=== PATIENT | male | born 1950 | race Caucasian/White ===

== ENCOUNTER → 2018-01-22 | Outpatient (CLI) | payer MEDICARE, OTHER ==
[2013-12-25 09:12] VITALS: BP 142/90
--- NOTE | 2018-01-22 11:31 | KCIC ---
MRI of the cervical spine without contrast 01/22/2018 CLINICAL HISTORY: Neck pain for last 3 weeks with new left arm numbness. TECHNIQUE: Unenhanced T1-weighted, T2-weighted and inversion recovery sagittal and gradient echo and T2-weighted axial images of the cervical spine were obtained. FINDINGS: Minimal lateral curvature of the cervical spine is seen convex to the right. There is straightening of the normal cervical lordosis. Degenerative signal changes are seen involving all of the disks of the cervical spine. Degenerative signal changes are seen within the marrow surrounding these discs. Loss of height of the C3-4, C5-6 and C6-7 discs is noted. No area of abnormal signal intensity is seen involving the cervical spinal cord. At the C2-3 disc space there is a minimal generalized disc bulge. Superimposed on this disc bulge is a focal central disc protrusion. This measures 2 mm in AP diameter. Degenerative changes are seen involving the uncovertebral and facet joints bilaterally. These findings do not result in significant central spinal canal or neural foraminal stenosis. At the C3-4 disc space there is a mild generalized disc bulge. Superimposed on this disc bulge is a central/right paracentral disc osteophyte complex. This measures 4 mm in AP diameter. Degenerative changes are seen involving the uncovertebral and facet joints, right greater than left. These findings efface the anterior CSF resulting in mild right-sided central spinal canal stenosis without evidence of cord impingement. Mild to moderate right greater than left neural foraminal stenosis is seen. At the C4-5 disc space there is a mild generalized disc bulge. Superimposed on this disc bulge is a focal central disc protrusion. This measures 3 mm in AP diameter. Degenerative changes are seen involving the uncovertebral and facet joints, left greater than right. These findings when combined do not result in significant central spinal canal stenosis. Mild left neural foraminal stenosis is seen. The right neural foramen is patent. At the C5-6 disc space there is a mild generalized disc bulge. Superimposed on this disc bulge is a left paracentral disc osteophyte complex. This measures 5 mm in AP diameter. Degenerative changes are seen involving the uncovertebral and facet joints, left greater than right. These findings when combined result in mild to moderate left-sided central spinal canal stenosis. Moderate to severe left neural foraminal stenosis is seen. The right neural foramen is patent. At the C6-7 disc space there is a mild to moderate generalized disc bulge. Degenerative changes are seen involving the uncovertebral and facet joints, left greater than right. These findings when combined do not result in significant central spinal canal stenosis. Mild to moderate bilateral neural foraminal stenosis is seen. At the C7-T1 disc space there is a mild generalized disc bulge. Degenerative changes are seen involving the uncovertebral and facet joints bilaterally. These findings do not result in significant central spinal canal or neural foraminal stenosis. IMPRESSION: Degenerative changes are seen throughout the cervical spine. These findings results in mild right-sided central spinal canal stenosis at C3-4 and mild to moderate left-sided central spinal canal stenosis at C5-6 without definite evidence of cord impingement. Multilevel neural foraminal stenosis of varying severity is seen as outlined above. Electronically signed by: Eleazar Sanchez MD (01/22/2018 11:28 AM) [id number]
== END | disposition home or self-care (01) ==
LOC: KCIC MRI 09:29
DX: M50.323 Other cervical disc degeneration at C6-C7 level (principal); M48.02 Spinal stenosis, cervical region; M47.896 Other spondylosis, lumbar region; M85.88 Other specified disorders of bone density and structure, other site
CPT/HCPCS: 72141